=== PATIENT | female | born 1955 | race Caucasian/White ===

== ENCOUNTER 2016-08-25 10:20 | Emergency (ER) | payer OTHER ==
[2016-08-25 11:23] VITALS: BP 121/63; PULSE 85; RESP 18; TEMP 97.3
--- NOTE | 2016-08-25 11:24 | ED ---
Fall HPI - General Chief Complaint: Fall Stated Complaint: fall on property, rt side pain Time Seen by Provider: 08/25/16 10:56 Source: patient, RN notes reviewed Mode of arrival: ambulatory Limitations: no limitations - History of Present Illness Initial Comments: 60-year-old female presents emergency Department with chief complaint trip and fall. Patient states she was coming to the hospital pharmacy when she tripped over sign. Patient states she fell onto her right side there is no head injury no LOC. Patient went of mild pain to her right shoulder, right hip region and right knee. Patient ambulating with no difficulty. She has a small abrasion to her right knee. Patient states she is able to move her shoulder with mild discomfort. Denies any clicking or popping. Denies any iris deformity. Patient states that she was advised that she do be checked out. - Related Data Home Medications Medication Instructions Recorded Confirmed Gemfibrozil [Lopid] 600 mg PO AC-BID 04/03/14 08/25/16 Calcium Carbonate/Vitamin D3 1 tab PO DAILY 08/25/16 08/25/16 [Calcium 600-Vit D3 400 Caplet] Fish Oil/Dha/Epa [Fish Oil 1,200 1 cap PO DAILY 08/25/16 08/25/16 mg Fish Oil] Multivitamins, Thera [Multivitamin] 1 tab PO DAILY 08/25/16 08/25/16 Vitamin B Complex 1 cap PO DAILY 08/25/16 08/25/16 Allergies Allergy/AdvReac Type Severity Reaction Status Date / Time silver sulfadiazine Allergy Unknown Verified 08/25/16 11:01 [From Silvadene] Sulfa (Sulfonamide Allergy Unknown Verified 08/25/16 11:01 Antibiotics) Review of Systems ROS Statement: Those systems with pertinent positive or pertinent negative responses have been documented in the HPI. ROS Other: All systems not noted in ROS Statement are negative. Past Medical History Additional Past Medical History / Comment(s): Recovering alcoholic History of Any Multi-Drug Resistant Organisms: None Reported Additional Past Surgical History / Comment(s): Oral Past Psychological History: No Psychological Hx Reported Smoking Status: Current every day smoker Past Alcohol Use History: None Reported Past Drug Use History: None Reported General Exam Limitations: no limitations General appearance: alert, in no apparent distress Head exam: Present: atraumatic, normocephalic, normal inspection Eye exam: Present: normal appearance, PERRL, EOMI. Absent: scleral icterus, conjunctival injection, periorbital swelling Neck exam: Present: normal inspection, full ROM. Absent: tenderness, meningismus, lymphadenopathy Respiratory exam: Present: normal lung sounds bilaterally. Absent: respiratory distress, wheezes, rales, rhonchi, stridor Cardiovascular Exam: Present: regular rate, normal rhythm, normal heart sounds. Absent: systolic murmur, diastolic murmur, rubs, gallop, clicks Extremities exam: Present: other (Right shoulder patient has mild discomfort greater than 90. Patient has some tenderness along the posterior aspect there is no iris deformity. Patient's right arm neurovascular intact patient's full range of motion right elbow, right wrist with nontender patient has minimal tenderness the right hip patient's able to bear weight completely there is no shortening or rotation. Patient has small abrasion to the right knee with minimal tenderness. He does remain muscle skeletal exam within normal limits.) Back exam: Present: full ROM. Absent: tenderness, paraspinal tenderness, vertebral tenderness Neurological exam: Present: alert, oriented X3, CN II-XII intact Skin exam: Present: warm, dry, intact, normal color. Absent: rash Course Vital Signs 08/25/16 10:31 Temperature 98.1 F Pulse Rate 82 Respiratory 20 Rate Blood Pressure 118/60 O2 Sat by Pulse 99 Oximetry Medical Decision Making - Medical Decision Making 60-year-old female presented emergency department for fall. Patient's was advised us we should have x-rays of her right shoulder, right hip and right knee though she refuses. She states that she has not had insurance and does not want to pay for this. Patient advised that she may have undiagnosed fracture without having x-rays. Patient states she'll take this responsibility. Patient be discharged at this time. Disposition Clinical Impression: Fall, Right shoulder injury, Right hip pain, Right knee pain Disposition: HOME SELF-CARE Condition: Stable Instructions: Shoulder Sprain (ED) Additional Instructions: Please return to the Emergency Department if symptoms worsen or any other concerns. Time of Disposition: 11:23
== END 2016-08-25 11:37 | disposition home or self-care (01) ==
LOC: EC 10:20
DX: S80.211A Abrasion, right knee, initial encounter (principal); M25.511 Pain in right shoulder; M25.551 Pain in right hip; F17.200 Nicotine dependence, unspecified, uncomplicated; Z88.3 Allergy status to other anti-infective agents; Z88.2 Allergy status to sulfonamides; Z79.899 Other long term (current) drug therapy; W01.0XXA Fall on same level from slipping, tripping and stumbling without subsequent striking against object, initial encounter; Y92.238 Other place in hospital as the place of occurrence of the external cause
CPT/HCPCS: 99283